=== PATIENT | female | born 1975 | race Asian ===

== ENCOUNTER 2020-10-07 14:20 | Outpatient (CLI) | payer OTHER ==
--- NOTE | 2020-10-08 15:04 | Mammography Report ---
BILATERAL DIGITAL SCREENING MAMMOGRAM 3D/2D: 10/07/2020 CLINICAL: Baseline exam. Routine screening. No prior exams were available for comparison. The tissue of both breasts is heterogeneously dense. T his may lower the sensitivity of mammography. There is a focal asymmetry in the right breast at 6 o'clock anterior depth. There is possible architectural distortion in the left breast at 5 o'clock middle depth. No other significant masses or calcifications are seen in either breast. IMPRESSION: INCOMPLETE: NEEDS ADDITIONAL IMAGING EVALUATION The focal asymmetry in the right breast at 6 o'clock anterior depth is indeterminate. Additional vie ws with possible ultrasound are recommended. The possible architectural distortion in the left breast at 5 o'clock middle depth is indeterminate. Additional views with possible ultrasound are recommended. This exam was interpreted at Station ID: [id number]. NOTE: For mammograms, a report in lay terms will be sent to the patient. Approximately 15% of breast malignancies will not be visualized mammographically. In the management of a palpable breast mass, a negative mammogram must not discourage biopsy of a clinically suspicious lesion. Electronically Signed By: Adriana Pederson M.D. lk/:10/07/2020 16:36:26 ACR BI-RADS Category 0: Incomplete 3340F PARENCHYMAL PATTERN: (D) - The breast(s) demonstrate(s) heterogeneously dense fibroglandular brendon pollack. BI-RADS CATEGORY: (0) - 0 Mammo and US [id number] Immediate follow-up LATERALITY: (B)
== END 2020-10-07 14:21 | disposition home or self-care (01) ==
LOC: DI.N 14:20
DX: Z12.31 Encounter for screening mammogram for malignant neoplasm of breast (principal); N64.89 Other specified disorders of breast
CPT/HCPCS: 77067

== ENCOUNTER 2020-10-28 09:06 | Outpatient (CLI) | payer OTHER ==
--- NOTE | 2020-10-29 07:24 | Ultrasound Report ---
LIMITED ULTRASOUND OF LEFT BREAST: 10/28/2020 CLINICAL: Patient returns today to evaluate an architectural distortion in the left breast. Comparison is made to exams dated: 10/28/2020 mammogram and 10/07/2020 mammogram - [facility]. Ultrasound of the left breast 4 o'clock region was performed. There is a 0.7 cm x 0.8 cm x 0.3 cm oval cyst with a septated internal wall in the left breast at 4 o 'clock middle depth 5 cm from the nipple. This oval cyst displays posterior acoustic enhancement. T his correlates with mammography findings. IMPRESSION: PROBABLY BENIGN The 0.7 cm x 0.8 cm x 0.3 cm oval cyst in the left breast is consistent with a complicated cyst and i s probably benign. A follow-up left mammogram and an ultrasound in 6 months is recommended to demonstrate stability. This exam was interpreted at Station ID: [id number]. Electronically Signed By: Dale batista/diogenes:10/28/2020 13:24:47 Ultrasound BI-RADS: 3 Probably benign BI-RADS CATEGORY: (3) - 3 Mammo and US [id number] 6 month follow-up LATERALITY: (L)
--- NOTE | 2020-10-29 07:24 | Mammography Report ---
BILATERAL DIGITAL DIAGNOSTIC MAMMOGRAM 3D/2D: 10/28/2020 CLINICAL: Additional evaluation requested from prior study. Family history of breast cancer. Comparison is made to exam dated: 10/07/2020 mammogram - [facility]. The tissue o f both breasts is heterogeneously dense. This may lower the sensitivity of mammography. There is an oval focal asymmetry with an obscured margin in the right breast at 8 o'clock middle dept h. This is seen in additional views. This is less prominent. There is an irregular focal asymmetry in the left breast at 4 o'clock middle depth. This is seen in additional views. No other significant masses or calcifications are seen in either breast. IMPRESSION: INCOMPLETE: NEEDS ADDITIONAL IMAGING EVALUATION The oval focal asymmetry in the right breast at 8 o'clock middle depth is indeterminate. An ultrasou nd is recommended. The irregular focal asymmetry in the left breast at 4 o'clock middle depth is indeterminate. An ultr asound is recommended. This exam was interpreted at Station ID: [id number]. NOTE: For mammograms, a report in lay terms will be sent to the patient. Approximately 15% of breast malignancies will not be visualized mammographically. In the management of a palpable breast mass, a negative mammogram must not discourage biopsy of a clinically suspicious lesion. SUMMARY: Targeted ultrasound is recommended for further evaluation and will be scheduled immediately following this exam. Electronically Signed By: Dale batista/diogenes:10/28/2020 13:20:48 ACR BI-RADS Category 0: Incomplete 3340F PARENCHYMAL PATTERN: (D) - The breast(s) demonstrate(s) heterogeneously dense fibroglandular brendon pollack. BI-RADS CATEGORY: (0) - 0 Ultrasound [id number] Immediate follow-up LATERALITY: (B)
--- NOTE | 2020-10-29 07:24 | Ultrasound Report ---
LIMITED ULTRASOUND OF RIGHT BREAST: 10/28/2020 CLINICAL: Patient returns today to evaluate a focal asymmetry in the right breast. Comparison is made to exams dated: 10/28/2020 mammogram and 10/07/2020 mammogram - [facility]. Ultrasound of the right breast 8 o'clock region was performed. There is a benign 0.6 cm x 0.8 cm x 0.3 cm wider than tall oval cyst with a septated internal wall in the right breast at 8 o'clock middle depth 5 cm from the nipple. This oval cyst is anechoic with a well-defined boundary and posterior acoustic enhancement. This correlates with mammography findings. IMPRESSION: BENIGN There is no sonographic evidence of malignancy. The 0.6 cm x 0.8 cm x 0.3 cm wider than tall oval cyst in the right breast is benign. This exam was interpreted at Station ID: [id number]. Electronically Signed By: Dale batista/diogenes:10/28/2020 13:22:19 Ultrasound BI-RADS: 2 Benign BI-RADS CATEGORY: (2) - 2 Unspecified - other recall n/a LATERALITY: (B)
== END 2020-10-28 09:07 | disposition home or self-care (01) ==
LOC: DI 09:06
PROVIDERS: ATTEND Family Medicine
DX: N60.01 Solitary cyst of right breast (principal); N60.02 Solitary cyst of left breast; Z80.3 Family history of malignant neoplasm of breast

== ENCOUNTER 2021-02-03 16:01 | Outpatient (CLI) | payer OTHER ==
[2021-02-03 16:54] VITALS: BP 126/85
--- NOTE | 2021-02-03 16:54 | SLEEP CARE CONSULTATION ---
Information from patient questionnaire entered by Vidal Soto. I have reviewed and concur with the information entered by Vidal Soto. This document represents the service I personally performed and the decisions made by me, Alyce Tom ARNP. History of Present Illness Service Date and Time: 02/03/2021 1601 Reason for Visit: New patient Chief Complaint: reports: Unrefreshed sleep, Snoring, Fatigue, Frequent awakenings at night Date of Onset: 4-5 years Usual bedtime: 7132-4329 Time it takes to fall asleep: At least an hour if no sleep aid Snores at night: Yes Observed to quit breathing while asleep: No Sleeps alone due to snoring: No Number of times waking at night: 3-4 times Reasons for waking at night: reports: Choking, Snoring, Gasping for air, Bathroom, Other (Noise) Toss, Turn, or Twitch while sleeping: Yes Recalls having dreams: Yes Usually gets out of bed at: 5613-3412 Feels refreshed in the morning: No Morning headache: Yes (mid-day if medicated; 1 x a week) Sleepy or fatigued during the day: Yes Ever fallen asleep while driving: No Takes day naps: Yes (Occasional; once on weekends) Dreams during day naps: Yes Prior sleep studies: Yes Year and Where: 2016 [place], [place] Additional HPI information: I had the pleasure of seeing JULY GUILLERMO today regarding the possibility of her having a sleep disorder. Her current complaints are fatigue, frequent night awakenings, snoring and unrefreshed sleep. In 2017 she was diagnosed with mild obstructive sleep apnea with an AHI of 10.3. She was moving at the time and never started using the CPAP. She decided to have this rechecked because she hasn't been sleeping well and is not able to lose weight. She has cut carbs, sugar, etc to try to maintain weight loss without success. She states her father had terrible snoring but was never tested and had hypertension and heart issues. She has a history of Graves disease with an ablation in 1998 and is on Levothyroxine. 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 Patient is and lives in [place]. Have you smoked in the past 12 months: No Alcohol use: Yes Alcohol amount and frequency: 1-3 occasionally Caffeine use: Yes Caffeine amount and frequency: 2-3 cups every day Family History Family history of sleep disordered breathing: No Family Hx Sleep Apnea: Mother: Snoring (has not done sleep study), Father: Snoring Allergies and Home Medications Drug allergies reviewed: Yes (NKDA) Home medication list reviewed: Yes Allergy and home medication list: Zyrtec Colace Vitamin D Flonase Lasix Gabapentin Levothyroxine Cytomel Losartan Omeprazole Miralax Sumatriptan Tylenol, prn Methocarbamol, prn Botox (for migraine) Melatonin, prn sleep Review of Systems Weight gain over past 5 years: 16-20 Cardiovascular: reports: high blood pressure, palpitations, leg or foot swelling Respiratory: reports: chronic cough Gastrointestinal: reports: heartburn Neurological: reports: headaches Ear/Nose/Throat: denies: tonsillectomy, wisdom teeth removed Endocrine: reports: thyroid disease, sluggishness (tired), too hot or cold Musculoskeletal: reports: neck pain, back pain Immunologic: reports: allergies to food or environment (seasonal) Physical Exam Blood Pressure: 126/85 Cuff size: wrist Heart Rate: 72 O2 Saturation: 98 Height: 5 ft 4 in Weight: 170 lb Body Mass Index: 29.2 BMI Classification: Overweight Nostrils: patent to airflow Mouth and throat: narrow oropharynx Soft palate: long Hard palate: Torus palatinus Uvula visualization: 25% Mallampati Class III Tongue: enlarged in size with teeth munoz on lateral edges Tonsils: 1+ Neck: normal w/o lymphadenopathy or thyromegaly Heart: regular rate and rhythm Lungs: clear bilaterally Impression and Plan 1. Suspected Obstructive Sleep Apnea-Hypopnea Syndrome, as previously diagnosed in 2017 and as suggested by a continued history of loud and irregular snoring, gasping or choking in sleep, frequent awakening during the night, unrefreshed sleep, cognitive impairment, and excessive daytime sleepiness. Since patient has not been using her CPAP machine and in fact never started using it, I recommend proceeding to polysomnography to confirm the diagnosis and to assess severity. I informed the patient of what the sleep studies involve and after some discu ssion, obtained agreement to proceed. The pathophysiology of obstructive sleep apnea-hypopnea syndrome was discussed with the patient and health risks of cardiovascular and cerebrovascular disease if not treated. Risks of drowsy driving discussed in detail and patient advised to avoid long distance driving and to lime puller at the first sign of drowsiness. Patient agreed to plan. * Schedule polysomnography +- manual CPAP titration study and return in 1-2 weeks after the study to discuss result and initiate therapy. * Avoid long distance driving or driving when feeling sleepy. * Avoid alcohol, sedative and muscle relaxant around bedtime. * Continue to try to lose weight. * Review instructions provided by trained office staff on how to prepare for the sleep study. * Return for follow-up after sleep study completed. Counseling Topics: Weight loss health impact Visit Type: In Office Time Spent with Patient (minutes): 30 Provider Statement: I spent 100% of the Face to Face Visit with the patient with greater than 50% spent counseling the patient and coordination of care.
== END 2021-02-03 16:02 | disposition home or self-care (01) ==
LOC: SC 16:01
PROVIDERS: ATTEND Nurse Practitioner Family
DX: G47.33 Obstructive sleep apnea (adult) (pediatric) (principal); E66.3 Overweight; Z68.29 Body mass index [BMI] 29.0-29.9, adult
CPT/HCPCS: 99203; 99212

== ENCOUNTER 2021-03-23 09:47 | Outpatient (CLI) | payer OTHER | END 2021-03-23 09:48 | disposition home or self-care (01) | LOC: SC 09:47 | PROVIDERS: ATTEND Nurse Practitioner Family | DX: Z53.8 Procedure and treatment not carried out for other reasons (principal) | CPT/HCPCS: 95806 ==

== ENCOUNTER 2021-05-22 08:06 | Outpatient (CLI) | payer OTHER ==
--- NOTE | 2021-05-25 15:52 | Mammography Report ---
UNILATERAL LEFT DIGITAL DIAGNOSTIC MAMMOGRAM 3D/2D: 05/22/2021 CLINICAL: Patient returns for a 6 month follow up of the left breast. Comparison is made to exams dated: 10/28/2020 ultrasound, 10/28/2020 ultrasound, 10/28/2020 mammogram, and 10/07/2020 mammogram - [facility]. The tissue of left breast is heterogeneousl y dense. This may lower the sensitivity of mammography. There is an irregular focal asymmetry in the left breast at 4 o'clock middle depth. This is not sign ificantly changed. No other significant masses or calcifications are seen in the breast. IMPRESSION: INCOMPLETE: NEEDS ADDITIONAL IMAGING EVALUATION The irregular focal asymmetry in the left breast is indeterminate. An ultrasound is recommended. This exam was interpreted at Station ID: [id number]. NOTE: For mammograms, a report in lay terms will be sent to the patient. Approximately 15% of breast malignancies will not be visualized mammographically. In the management of a palpable breast mass, a negative mammogram must not discourage biopsy of a clinically suspicious lesion. Electronically Signed By: Dale batista/diogenes:05/22/2021 10:31:58 ACR BI-RADS Category 0: Incomplete 3340F PARENCHYMAL PATTERN: (D) - The breast(s) demonstrate(s) heterogeneously dense fibroglandular brendon pollack. BI-RADS CATEGORY: (0) - 0 Ultrasound [id number] Immediate follow-up LATERALITY: (L)
--- NOTE | 2021-05-25 15:52 | Ultrasound Report ---
LIMITED ULTRASOUND OF LEFT BREAST: 05/22/2021 CLINICAL: Patient returns for short term follow-up of a probably benign mass in the left breast. Comparison is made to exams dated: 05/22/2021 mammogram, 10/28/2020 ultrasound, 10/28/2020 mammogram, an d 10/07/2020 mammogram - [facility]. Color flow and real-time ultrasound of the left breast 4 o'clock region were performed. Blum scale images of the real-time examination were reviewed. There is a 0.7 cm x 0.7 cm x 0.4 cm oval cyst with a septated internal wall in the left breast at 4 o 'clock middle depth 5 cm from the nipple. This oval cyst displays posterior acoustic enhancement. T his abnormality is not significantly changed and correlates with mammography findings. IMPRESSION: PROBABLY BENIGN The 0.7 cm x 0.7 cm x 0.4 cm oval cyst in the left breast is consistent with a complicated cyst and i s probably benign. A follow-up mammogram and an ultrasound in 6 months is recommended to demonstrate stability. This exam was interpreted at Station ID: [id number]. Electronically Signed By: Dale batista/diogenes:05/22/2021 10:33:55 Ultrasound BI-RADS: 3 Probably benign BI-RADS CATEGORY: (3) - 3 Mammo and US [id number] 6 month follow-up LATERALITY: (B)
== END 2021-05-22 08:07 | disposition home or self-care (01) ==
LOC: DI 08:06
PROVIDERS: ATTEND Family Medicine
DX: N60.02 Solitary cyst of left breast (principal)

== ENCOUNTER 2021-12-16 09:16 | Outpatient (CLI) | payer OTHER ==
[2021-12-16 09:44] VITALS: BP 120/76
--- NOTE | 2021-12-16 09:44 | SLEEP CARE CONSULTATION ---
Information from patient questionnaire entered by Sebas Villanueva MA. I have reviewed and concur with the information entered by Sebas Villanueva MA. This document represents the service I personally performed and the decisions made by , Alyce Tom ARNP. History of Present Illness Service Date and Time: 12/16/2021 0916 Previous diagnosis: Mild, Obstructive Sleep Apnea-Hypopnea Syndrome AHI: 10.3 (in 2016) Reason for follow up: other (9 MONTH F/U, RE ORDER STUDY) Prior sleep studies: Yes Year and Where: 2016 [facility] additional information: JULY GUILLERMO was previously diagnosed to have mild, AHI 10.3, obstructive sleep apnea-hypopnea syndrome and returns today for 9 month follow-up. At her last appointment, a sleep study was ordered to verify diagnosis because she had not been able to start CPAP therapy after she was diagnosed in 2016. She tried to retest with an HST but was unable to get more than 5 minutes. She is taking Melatonin every night to be able to go to sleep. She is having more heartburn issues and is taking Prilosec 20 mg daily and supplementing with Tums. She had a hysterectomy in October and Covid in November. Sleep Study - Results Prior sleep studies: Yes Year and Where: 2016 [place], [place] Subjective Initial [place] Sleepiness Scale score: 10 (in 2020) Current [place] Sleepiness Scale score: 10 (2021) Allergies and Home Medications Known drug allergies: Yes Drug allergies reviewed: Yes Home medication list reviewed: Yes (Advair - long history of cough) Allergy and home medication list: Advair Tums, prn Prilosec daily Melatonin, nightly Review of Systems Review of systems same as previous: No (hysterectomy ; Covid Nov 23) Physical Exam Vital signs obtained and entered by: Omer VILLANUEVA CMA AAID Blood Pressure: 120/76 (right, pulse 78, resp 16) Cuff size: wrist Heart Rate: 74 O2 Saturation: 97 (with paper mask) Height: 5 ft 4 in Weight: 174 lb Body Mass Index: 29.8 BMI Classification: Overweight Impression and Plan 1. Suspected Obstructive Sleep Apnea-Hypopnea Syndrome, as previously diagnosed and as suggested by a history of loud and irregular snoring, observed cessation of breath while asleep, morning headache, frequent awakening during the night, unrefreshed sleep, cognitive impairment, and excessive daytime sleepiness. I saw her back in January and ordered a sleep study. She attempted to do a HST but only recorded 5 minutes. She returns to try to do an in lab PSG. I agreed we should proceeding to polysomnography to confirm the diagnosis and to assess severity. If the patient has significant sleep disordered breathing, a manual CPAP titration study will also be performed to find the optimal treatment pressure. I informed the patient of what the sleep studies involve and after some di scussion, obtained agreement to proceed. The pathophysiology of obstructive sleep apnea-hypopnea syndrome was discussed with the patient and health risks of cardiovascular and cerebrovascular disease if not treated. Risks of drowsy driving discussed in detail and patient advised to avoid long distance driving and to bone char puller at the first sign of drowsiness. Patient agreed to plan. Patient has gained weight but states this happens due to her thyroid. She is trying to lose weight. * Schedule polysomnography * Avoid long distance driving or driving when feeling sleepy. * Avoid alcohol, sedative and muscle relaxant around bedtime. * Continue to try to lose weight. * Review instructions provided by trained office staff on how to prepare for the sleep study. * Return for follow-up after sleep study completed. Counseling Topics: Weight loss health impact Visit Type: In Office Time Spent with Patient (minutes): 12 Provider Statement: I spent 100% of the Face to Face Visit with the patient with greater than 50% spent counseling the patient and coordination of care.
== END 2021-12-16 09:17 | disposition home or self-care (01) ==
LOC: SC 09:16
PROVIDERS: ATTEND Nurse Practitioner Family
DX: G47.33 Obstructive sleep apnea (adult) (pediatric) (principal); R06.83 Snoring; G47.8 Other sleep disorders; R51.9 Headache, unspecified; G47.10 Hypersomnia, unspecified; E66.3 Overweight; Z68.29 Body mass index [BMI] 29.0-29.9, adult
CPT/HCPCS: 99212

== ENCOUNTER 2022-01-10 20:36 | Outpatient (CLI) | payer OTHER | END 2022-01-10 20:37 | disposition home or self-care (01) | LOC: SC 20:36 | PROVIDERS: ATTEND Nurse Practitioner Family | DX: R06.83 Snoring (principal); G47.8 Other sleep disorders; R06.81 Apnea, not elsewhere classified; R51.9 Headache, unspecified; G47.10 Hypersomnia, unspecified | CPT/HCPCS: 95810 ==